=== PATIENT | female | born 1975 | race Caucasian/White ===

== ENCOUNTER 2016-06-07 08:28 | Emergency (ER) | payer BC, OTHER ==
[~2016-06-07] VITALS: Ht 152.4 cm; Wt 67.0 kg
[2016-06-07 08:30] VITALS: Ht 152.4 cm; Wt 67.0 kg
[2016-06-07] MEDS ORDERED: BENZ100C70 PO (08:44)
[2016-06-07] MEDS ORDERED: IBUP-1542 PO (08:44)
[2016-06-07] MEDS ORDERED: GUAI118L22 PO (08:44)
--- NOTE | 2016-06-07 08:58 | ERD ---
ER Documentation Chief Complaint Date/Time DATE: 06/07/16 TIME: 08:55 Chief Complaint COUGH X 3 DAYS HPI 40 y o female comes in with cough, sore throat, rhinorrhea for the past 3 days. No fever, hemoptysis. Denies chest pain or shortness of breath. ROS All systems reviewed and are negative except as per history of present illness. Medications Home Meds Active Scripts Ibuprofen* (Motrin*) 600 Mg Tab, 600 MG PO Q6, #30 TAB Prov:GINA FLOWER PA-C 06/07/16 Benzonatate* (Tessalon Perle*) 100 Mg Capsule, 100 MG PO Q8H Y for COUGH, #20 CAP Prov:GNIA FLOWER PA-C 06/07/16 Guaifenesin/Codeine Phosphate (CHERATUSSIN AC SYRUP) 118 Ml Liquid, 5 ML PO Q4H Y for COUGH, #118 ML Prov:GINA FLOWER PA-C 06/07/16 Allergies Allergies: Coded Allergies: No Known Allergy (Verified Allergy, Unknown, 12/30/08) PMhx/Soc Medical and Surgical Hx: pt denies Medical Hx, pt denies Surgical Hx Hx Alcohol Use: No Hx Substance Use: No Hx Tobacco Use: No Physical Exam Vitals Vital Signs Date Time Temp Pulse Resp B/P Pulse Ox O2 Delivery O2 Flow Rate FiO2 06/07/16 08:30 97.6 74 18 123/78 99 Physical Exam General: Well-developed, well-nourished. The patient appears in no acute distress. HEENT: Head is normocephalic, atraumatic. No scleral icterus. Pupils are equal , round, and reactive. Oral mucous membranes are moist. No pharyngeal erythema. Neck: Supple. Nontender. Lungs: Clear to auscultation. Normal air movement. Heart: Regular rate and rhythm. S1 and S2 are normal. No murmurs, gallops, or rubs. Abdomen: Soft, nontender, nondistended. Bowel sounds are normoactive. Extremities: No clubbing or cyanosis. Normal pulses. Moving extremities x 4. No weakness. Neurologic: Alert and oriented 3. No focal deficits. Skin: Normal turgor. No rash or lesions. Procedures/MDM The patient is a 40-year-old female who comes in with an acute upper respiratory infection, presumed viral. The patient has a differential diagnosis of a viral upper respiratory infection, bacterial upper respiratory infection, bronchitis, pneumonia, pharyngitis, laryngitis, epiglottitis, croup, pneumonia. Patient has a normal pulmonary examination, clear breath sounds, normal pulse oximetry, with no corrective measures needed at this time. Fluids, rest, antipyretics were encouraged. Departure Diagnosis: Primary Impression: Cough Condition: Good Patient Instructions: Uri, Viral, No Abx (Adult) Additional Instructions: Call your primary care doctor TOMORROW for an appointment during the next 1-2 days.See the doctor sooner or return here if your condition worsens before your appointment time. GINA FLOWER PA-C Jun 07, 2016 08:58
== END 2016-06-07 09:18 | disposition home or self-care (01) ==
LOC: FTE 08:28
DX: R05 Cough (principal)
CPT/HCPCS: 99283

== ENCOUNTER 2016-10-09 05:37 | Day surgery (SDC) | payer OTHER ==
[~2016-10-09] VITALS: Ht 165.1 cm; Wt 68.0 kg
[2016-10-09] VITALS (10 sets, daily range): BP systolic 84–106; BP diastolic 55–68; PULSE 41–66; RESP 15–18; Ht 165.1 cm; Wt 68.0 kg
[~2016-10-09 05:37] MED LIST: BENZ100C70 PO; GUAI118L22 PO; IBUP-1542 PO
[2016-10-09] MEDS ORDERED: STRONG IODINE 14 ML SOLUTION TOP ONE (06:43)
[2016-10-09] MEDS ORDERED: SEVOFLURANE 15 MIN ONE (07:00)
[2016-10-09] MEDS ORDERED: ONDANSETRON 4 MG INJ ONE (07:29)
[2016-10-09] MEDS ORDERED: MEPERIDINE 100 MG INJ ONE (07:29)
[2016-10-09] MEDS ORDERED: LIDOCAINE 2% (SDV) 5 ML INJ ONE (07:29)
[2016-10-09] MEDS ORDERED: PROPOFOL 20 ML ONE (07:29)
[2016-10-09] MEDS ORDERED: METOCLOPRAMIDE 10 MG INJ ONE (07:30)
[2016-10-09] MEDS ORDERED: METOCLOPRAMIDE 10 MG INJ IV PRN (08:30)
[2016-10-09] MEDS ORDERED: OXYCODONE/ACETAMINOPHEN (5/325) TAB PO PRN ×2 (08:30)
[2016-10-09] MEDS ORDERED: EPHEDrine SULFATE 50 MG/5 ML SYG IV PRN (08:30)
[2016-10-09] MEDS ORDERED: FENTAnyl 50 MCG/ML VIAL IV PRN ×3 (08:30)
[2016-10-09] MEDS ORDERED: HYDROmorphONE (0.2 MG/ML) 10ML SYG IV PRN ×3 (08:30)
[2016-10-09] MEDS ORDERED: DIPHENHYDRAMINE 50 MG INJ IV PRN (08:30)
[2016-10-09] MEDS ORDERED: LABETALOL HCL 20MG INJ IV PRN (08:30)
[2016-10-09] MEDS ORDERED: MEPERIDINE 25 MG INJ IV PRN (08:30)
[2016-10-09] MEDS ORDERED: MIDAZOLAM 1 MG/ML 2 ML INJ IV PRN (08:30)
[2016-10-09] MEDS ORDERED: ONDANSETRON 4 MG INJ IV PRN (08:30)
--- NOTE | 2016-10-09 08:40 | OPR ---
Date/Time of Note Date/Time of Note DATE: 10/09/16 TIME: 08:33 Operative Report Preoperative Diagnosis cin3 Postoperative Diagnosis pending path report Operation/Procedure Performed leep &d&c Surgeon: RAVEN BRIDGES MD Anesthesia Type: general Estimated Blood Loss: 0 - 10 ml's Transfusion Required: no Specimens ectocx bx endocx bx ecc emc Grafts/Implants: none Complications: no RAVEN BRIDGES MD Oct 09, 2016 08:40
[2016-10-09] MEDS ORDERED: ACETAMINOPHEN 325 MG TAB PO PRN ×2 (09:00→09:30)
--- NOTE | 2016-10-10 08:17 | OPR ---
DATE OF OPERATION: 10/09/2016 PREOPERATIVE DIAGNOSIS: Cervical intraepithelial neoplasia 3 per colposcopy directed biopsy. POSTOPERATIVE DIAGNOSIS: Pending pathology report. SURGEON: Dr. Brandon. HAMMER REPAIRER: Lyn arias. ANESTHESIA: General. OPERATION PERFORMED: Loop electrocautery excision procedure and D and C. OPERATIVE PROCEDURE: Under general anesthesia, the patient was prepped and draped in the usual fashion for vaginal surgery. Pelvic exam under anesthesia revealed the cervix to be firm. Uterus of normal size and adnexa were negative for masses. Then the heavyweight vaginal retractor was put in place and the anterior lip of the cervix was grasped with an Allis clamp. The cervix and the vagina was dabbed with Lugol's solution. The external os of the cervix did not take the Lugol's. Then the loop was passed from left to right on the anterior lip of the cervix and from left to right on the posterior lip of the cervix. A good amount of tissue was obtained. Another smaller loop was passed up through the endocervical canal. A good amount of tissue was obtained. Endocervical curettage was done and a small amount of tissue was obtained. Endometrial curettage was done and a small amount of tissue was obtained. The site of the biopsy was cauterized with a ball cautery. No bleeding was noted. After cauterization, a small piece of Surgicel was left at the site of the biopsy. The patient tolerated the procedure well. ESTIMATED BLOOD LOSS: Minimal. Vital signs were stable during and after the procedure. Dictated By: Debbie Brandon MD /china/paresh /Document#: [id number] CC: Debbie Brandon MD;*[facility]*
== END 2016-10-09 09:31 | disposition home or self-care (01) ==
LOC: SDS 05:37
PROVIDERS: ATTEND Obstetrics & Gynecology
DX: D06.9 Carcinoma in situ of cervix, unspecified (principal)
CPT/HCPCS: 57522; 84702; 86850; 86900; 86901; 88305; J2175; J2405; J2765; Z7512; Z7610

== ENCOUNTER 2016-10-18 08:22 | Emergency (ER) | END 2016-10-18 09:32 | disposition home or self-care (01) | DX: N39.0 Urinary tract infection, site not specified (principal); R10.2 Pelvic and perineal pain | CPT/HCPCS: 81001; Z7502 ==

== ENCOUNTER 2016-11-26 09:31 | Emergency (ER) | payer OTHER ==
[~2016-11-26] VITALS: Ht 162.6 cm; Wt 66.0 kg
[~2016-11-26 09:31] MED LIST changes: -BENZ100C70 PO; -GUAI118L22 PO; -IBUP-1542 PO; +NITR-58 PO; +PHEN-538 PO
[2016-11-26 09:37] VITALS: Ht 162.6 cm; Wt 66.0 kg
[2016-11-26 10:57] LABS: ADD UMIC YES; UR ASCORBIC ACID NEGATIVE (NEGATIVE); UR BACTERIA FEW /HPF (NONE SEEN); UR BILIRUBIN (Dip) NEGATIVE (NEGATIVE); UR BLOOD (Dip) 1+ mg/dL (NEGATIVE); UR BUDDING YEAST FEW /HPF (NONE SEEN); UR CLARITY CLOUDY (CLEAR); UR COLOR YELLOW (YELLOW); UR GLUCOSE (Dip) NEGATIVE (NEGATIVE); UR KETONES (Dip) NEGATIVE (NEGATIVE); UR LEUKOCYTE ESTERASE (Dip) 3+ Leu/ul (NEGATIVE); UR MUCUS FEW /HPF (NONE SEEN); UR NITRITE (Dip) NEGATIVE (NEGATIVE); UR RBC 9 /HPF (0-5); UR SPECIFIC GRAVITY (Dip) 1.019 (1.003-1.030); UR SQUAMOUS EPITHELIAL CELL MODERATE /HPF (FEW); UR TOTAL PROTEIN (Dip) NEGATIVE (NEGATIVE); UR UROBILINOGEN (Dip) NEGATIVE (NEGATIVE)
--- NOTE | 2016-11-26 11:24 | RADRPT ---
PROCEDURE: US Pelvis Transabdominal and Transvaginal. CLINICAL INDICATION: Pelvic pain. TECHNIQUE: Multiple sonographic images of the pelvis were obtained utilizing dumont scale, Doppler a nd color flow imaging with transabdominal and endovaginal technique. The images were reviewed on a PACS workstation. COMPARISON: None. FINDINGS: The uterus is visualized and measures 8.1 x 6.2 x 5.6 cm. The endometrial echo complex measures 16.5 mm in thickness. Mild heterogeneity of the endometrium is seen. Small amount of free fluid is seen in the cervical canal. A 2.5 cm subserosal fibroid is identified in the uterus. The right ovary measures 6.2 x 2.7 x 4.7 cm . The left ovary measures 3.2 x 2.1 x 2.4 cm. A 4.1 x 2.5 x 4.1 cm heterogeneously hypoechoic nodular lesion is identified on the right ovary. No vascular ity is seen in this lesion. The ovaries demonstrate normal vascularity. Small amount of free fluid is seen in the cul-de-sac and left adnexa IMPRESSION: 2.5 cm uterine fibroid. Mildly thickened, heterogeneous appearing endometrium. Etiology of this finding is uncertain. Contin ued follow-up with repeat exam in 12 weeks to assess for persistence of this finding can be consider ed. Small amount of free fluid in the cervical canal. This could be related to menses. 4.1 cm heterogeneously hypoechoic nodular lesion on the right ovary. This could reflect an early hem orrhagic cyst versus true soft tissue nodule. Continued follow-up with repeat exam in 12 weeks to as sess the stability of this lesion is recommended. Small amount of nonspecific free fluid in the cul-de-sac and left adnexa. This could be physiologic. If further characterization of the organs of the pelvis is needed MRI should be considered. RPTAT: AA .Tee Kang MD, Date Time Electronically viewed and signed by .Tee Kang MD, on 11/26/2016 11:24 .P/
[2016-11-26] MEDS ORDERED: CIPR500T4 PO (12:28)
[2016-11-26] MEDS ORDERED: IBUP-1542 PO (12:29)
--- NOTE | 2016-11-26 12:44 | ERD ---
ER Documentation Chief Complaint Date/Time DATE: 11/26/16 TIME: 12:41 Chief Complaint pt bib self with c/o pelvic pain awaiting hysterectomy HPI This 41-year-old female presents with some suprapubic pain for last 3 days. History is significant for dilatation and curettage last month,. Patient presents with laboratory report showing precancerous or cancerous pathology from the cervix or uterus. Patient is scheduled for hysterectomy although she does not have the specific date. Her REGIONAL MAINTENANCE MANAGER is Dr. Davis. Patient has been told she had infections after D&C and was treated with multiple antibiotics. Her last course of Vigamox was 2 weeks ago. She feels like the infection is returned. She denies fevers, vomiting, right or left lower abdominal pain. His vaginal discharge or bleeding. ROS All systems reviewed and are negative except as per history of present illness. Medications Home Meds Active Scripts Ibuprofen* (Motrin*) 600 Mg Tab, 600 MG PO Q6, #15 TAB Prov:PENNIE MONAHAN MD 11/26/16 Ciprofloxacin Hcl* (Ciprofloxacin Hcl*) 500 Mg Tablet, 500 MG PO BID for 7 Days , TAB Prov:PENNIE MONAHAN MD 11/26/16 Phenazopyridine Hcl* (Pyridium*) 200 Mg Tab, 200 MG PO TID, #20 TAB Prov:GUSTAVO ABREU PA-C 10/18/16 Nitrofurantoin Monohyd Macrocr* (Macrobid*) 100 Mg Capsr, 100 MG PO BID for 7 Days, CAP Prov:GUSTAVO ABREU PA-C 10/18/16 Allergies Allergies: Coded Allergies: No Known Allergy (Verified , 11/26/16) PMhx/Soc History of Surgery: Yes (C/S/ LT HIP SX/PELVIC FX) Anesthesia Reaction: No Hx Neurological Disorder: No Hx Respiratory Disorders: No Hx Cardiac Disorders: No Hx Psychiatric Problems: No Hx Miscellaneous Medical Probl: No Hx Alcohol Use: No Hx Substance Use: No Hx Tobacco Use: No Smoking Status: Never smoker Physical Exam Vitals Vital Signs Date Time Temp Pulse Resp B/P Pulse Ox O2 Delivery O2 Flow Rate FiO2 11/26/16 09:37 97.6 66 16 111/74 97 Physical Exam Const: [], [id number] per Head: Atraumatic Eyes: Normal Conjunctiva ENT: Normal External Ears, Nose and Mouth. Neck: Full range of motion..~ No meningismus. Resp: Clear to auscultation bilaterally Cardio: Regular rate and rhythm, no murmurs Abd: Soft, suprapubic tenderness. No tenderness at McBurney's point no Ford sign., non distended. Normal bowel sounds Skin: No petechiae or rashes Back: No midline or flank tenderness Ext: No cyanosis, or edema Neur: Awake and alert Psych: Normal Mood and Affect Results 24 hrs Laboratory Tests Test 11/26/16 10:35 Urine Color YELLOW Urine Clarity CLOUDY Urine pH 5.0 Urine Specific [place] 1.019 Urine Ketones NEGATIVEmg/dL Urine Nitrite NEGATIVEmg/dL Urine Bilirubin NEGATIVEmg/dL Urine Urobilinogen NEGATIVEmg/dL Urine Leukocyte Esterase 3+Stella/ul Urine Microscopic RBC 9/HPF Urine Microscopic WBC 25/HPF Urine Squamous Epithelial Cells MODERATE/HPF Urine Bacteria FEW/HPF Urine Mucus FEW/HPF Urine Yeast (Budding) FEW/HPF Urine Hemoglobin 1+mg/dL Urine Glucose NEGATIVEmg/dL Urine Total Protein NEGATIVEmg/dl Procedures/MDM Shows white blood cells hemoglobin and leukocyte Estrace. HCG negative. Patient has signs of urinary tract infection. Pelvic ultrasound shows thickened endometrial lining and a small amount of fluid in the cervical canal. There is also some subtle abnormalities no ovarian without evidence of torsion , tubo-ovarian abscess, additional acute findings. She will be treated with Cipro and REGIONAL MAINTENANCE MANAGER and primary care follow-up. Patient shows no signs of acute abdomen, sepsis but should return for fevers, vomiting, new worsening symptoms. Patient appears to have good outpatient follow-up as her surgery is pending according to her paperwork. The patient was stable with no new complaints during the ER course. Clinically, there is no current evidence to suggest meningitis, sepsis, acute abdomen, pneumonia, acute coronary syndrome, pulmonary embolism, or any other emergent condition appearing to require further evaluation or hospitalization. The patient should certainly return for any new or worsening symptoms per the aftercare instructions. They should otherwise follow-up with her primary care doctor for reevaluation this week. Departure Diagnosis: Primary Impression: UTI (urinary tract infection) Urinary tract infection type: acute cystitis Hematuria presence: without hematuria Qualified Code: N30.00 - Acute cystitis without hematuria Additional Impression: Acute pain in female pelvis Condition: Stable Patient Instructions: Understanding Urinary Tract Infections (UTIs), Pelvic Pain, Unknown Cause Additional Instructions: Urine shows infection and we will retreat for this. Follow up with REGIONAL MAINTENANCE MANAGER for surgery as scheduled. Recheck for fevers, vomiting, new symptoms. PENNIE MONAHAN MD Nov 26, 2016 12:44
== END 2016-11-26 12:58 | disposition home or self-care (01) ==
LOC: FTE 09:31
DX: N30.00 Acute cystitis without hematuria (principal)
CPT/HCPCS: 76830; 76856; 81001; 87086; Z7502

== ENCOUNTER 2016-12-10 09:33 | Emergency (ER) | payer OTHER ==
[~2016-12-10] VITALS: Ht 165.1 cm; Wt 69.0 kg
[~2016-12-10 09:33] MED LIST changes: +CIPR500T4 PO; +IBUP-1542 PO
[2016-12-10 09:39] VITALS: Ht 165.1 cm; Wt 69.0 kg
--- NOTE | 2016-12-10 10:29 | ERD ---
ER Documentation Chief Complaint Date/Time DATE: 12/10/16 TIME: 10:24 Chief Complaint CAME IN VIA INTAKE DUE TO CONSISTENT URINARY INFECTION HPI 41 year old female comes in with 2 days of pain with urination, urgency frequency for the past 2 days. She has had recurrent urinary tract infection symptoms. He has recurrent sharp suprapubic pain, and had a CT of the abdomen pelvis and labs and urine testing at [facility] last week, urine was negative for infection, CT was also negative. She was told that she has precancerous cells from a LEEP and D&C that was done in October 2016 and she is going to get a total hysterectomy next Saturday. Since October she has been on Macrobid followed by Keflex followed by Bactrim DS and Cipro. She denies any hematuria, fevers, chills, flank pain, nausea, vomiting. ROS All systems reviewed and are negative except as per history of present illness. Medications Home Meds Active Scripts Nitrofurantoin Monohyd Macrocr* (Macrobid*) 100 Mg Capsr, 100 MG PO BID for 14 Days, CAP Prov:GINA FLOWER PA-C 12/10/16 Ibuprofen* (Motrin*) 600 Mg Tab, 600 MG PO Q6, #15 TAB Prov:PENNIE MONAHAN MD 11/26/16 Ciprofloxacin Hcl* (Ciprofloxacin Hcl*) 500 Mg Tablet, 500 MG PO BID for 7 Days , TAB Prov:PENNIE MONAHAN MD 11/26/16 Phenazopyridine Hcl* (Pyridium*) 200 Mg Tab, 200 MG PO TID, #20 TAB Prov:GUSTAVO ABREU PA-C 10/18/16 Nitrofurantoin Monohyd Macrocr* (Macrobid*) 100 Mg Capsr, 100 MG PO BID for 7 Days, CAP Prov:GUSTAVO ABREU PA-C 10/18/16 Allergies Allergies: Coded Allergies: No Known Allergy (Verified , 11/26/16) PMhx/Soc History of Surgery: Yes (C/S/ LT HIP SX/PELVIC FX) Anesthesia Reaction: No Hx Neurological Disorder: No Hx Respiratory Disorders: No Hx Cardiac Disorders: No Hx Psychiatric Problems: No Hx Miscellaneous Medical Probl: No Hx Alcohol Use: No Hx Substance Use: No Hx Tobacco Use: No Physical Exam Vitals Vital Signs Date Time Temp Pulse Resp B/P Pulse Ox O2 Delivery O2 Flow Rate FiO2 12/10/16 09:39 98.1 84 18 138/85 99 Physical Exam General: Well-developed, well-nourished. The patient appears in no acute distress. HEENT: Head is normocephalic, atraumatic. No scleral icterus. Neck: Supple. Nontender. Lungs: Clear to auscultation. Normal air movement. Heart: Regular rate and rhythm. S1 and S2 are normal. No murmurs, gallops, or rubs. Abdomen: Soft, nontender, nondistended. Bowel sounds are normoactive. Extremities: No clubbing or cyanosis. Normal pulses. Moving extremities x 4. No weakness. Neurologic: Alert and oriented 3. No focal deficits. Skin: Normal turgor. No rash or lesions. Results 24 hrs Laboratory Tests Test 12/10/16 10:30 Urine Color STRAW Urine Clarity SLIGHTLY CLOUDY Urine pH 6.0 Urine Specific [place] 1.005 Urine Ketones NEGATIVEmg/dL Urine Nitrite NEGATIVEmg/dL Urine Bilirubin NEGATIVEmg/dL Urine Urobilinogen NEGATIVEmg/dL Urine Leukocyte Esterase 2+Stella/ul Urine Microscopic RBC 2/HPF Urine Microscopic WBC 6/HPF Urine Squamous Epithelial Cells FEW/HPF Urine Amorphous Crystals FEW/HPF Urine Bacteria FEW/HPF Urine Hemoglobin 2+mg/dL Urine Glucose NEGATIVEmg/dL Urine Total Protein NEGATIVEmg/dl Urine Test NEGATIVE Procedures/MDM 41-year-old female presents with pelvic pain, painful urination, with positive UA for urinary tract infection. Patient was concerned because she has had multiple urinary tract infections over the last 2 months and she has a procedure for total hysterectomy on Saturday of next week. Her urine will be Sent for culture given her recurrent infections or recent antibiotic use. She will be started on Macrobid to be taken up until the point of her surgery. She has not had any fevers or chills or signs of pyelonephritis. She is already had a CT of the abdomen and pelvis as well as blood work recently in a different emergency department and she presents with her results which were reviewed, and unremarkable. Departure Diagnosis: Primary Impression: UTI (urinary tract infection) Condition: Good GINA FLOWRE PA-C Dec 10, 2016 10:29
[2016-12-10 11:04] LABS: ADD UMIC YES; UR AMORPHOUS CRYSTAL FEW /HPF (NONE SEEN); UR ASCORBIC ACID NEGATIVE (NEGATIVE); UR BACTERIA FEW /HPF (NONE SEEN); UR BILIRUBIN (Dip) NEGATIVE (NEGATIVE); UR BLOOD (Dip) 2+ mg/dL (NEGATIVE); UR CLARITY SLIGHTLY CLOUDY (CLEAR); UR COLOR STRAW (YELLOW); UR GLUCOSE (Dip) NEGATIVE (NEGATIVE); UR KETONES (Dip) NEGATIVE (NEGATIVE); UR LEUKOCYTE ESTERASE (Dip) 2+ Leu/ul (NEGATIVE); UR NITRITE (Dip) NEGATIVE (NEGATIVE); UR RBC 2 /HPF (0-5); UR SPECIFIC GRAVITY (Dip) 1.005 (1.003-1.030); UR SQUAMOUS EPITHELIAL CELL FEW /HPF (FEW); UR TOTAL PROTEIN (Dip) NEGATIVE (NEGATIVE); UR UROBILINOGEN (Dip) NEGATIVE (NEGATIVE)
[2016-12-10] MEDS ORDERED: NITR-58 PO (11:17)
== END 2016-12-10 11:34 | disposition home or self-care (01) ==
LOC: FTE 09:33
DX: N39.0 Urinary tract infection, site not specified (principal)
CPT/HCPCS: 81001; 84703; 87086; Z7502; 99283

== ENCOUNTER 2016-12-18 05:51 | Inpatient (IN) | payer OTHER ==
[2016-12-18] VITALS (28 sets, daily range): BP systolic 92–114; BP diastolic 50–72; PULSE 58–89; RESP 7–21; Ht 165.1 cm; Wt 65.0 kg
[~2016-12-18] VITALS: Ht 165.1 cm; Wt 65.0 kg
--- NOTE | 2016-12-18 07:11 | PREOPHP ---
DATE OF ADMISSION: 12/18/2016 HISTORY OF PRESENT ILLNESS: This is a 41-year-old lady, 1, para 1. Her last normal menstrual period was a few days prior to admission. She was admitted for exploratory laparotomy and total abdominal hysterectomy. The patient had an abnormal Pap, atypical squamous cells, cannot rule out high grade. She had a colposcopy biopsy done and showed SRAVAN 1 ectocervix and CI 3 endocervix. She had a LEEP and D and C done and the LEEP and D and C showed SRAVAN 3. The patient did not like to have anymore children and she did not like to have a follow-up Pap smear. She wanted to go for the above procedure. he procedures were explained to her and she understood everything totally. The risks, benefits, and alternatives were discussed with her as well. PAST MEDICAL HISTORY: No history of diabetes, TB, asthma. She had hip surgery 18 years ago. ALLERGIES: THE PATIENT DOES NOT SMOKE. SHE DOES NOT DRINK. SHE DOES NOT TAKE ANY DRUGS. COMPOSITION FLOOR SETTER HISTORY: She had menarche at the age of 12, every 28 days interval, 3-4 days duration and moderate in amount. She is 1, para 1. She had one section in 2008. FAMILY HISTORY: Noncontributory, except her father has diabetes. REVIEW OF SYSTEMS: CARDIOVASCULAR: No chest pain. LUNGS: No cough. GASTROINTESTINAL: No diarrhea, no vomiting. GENITOURINARY: No dysuria. PHYSICAL EXAMINATION: GENERAL APPEARANCE: Reveals a conscious, coherent lady, in no acute distress. VITAL SIGNS: Her blood pressure 120/80, pulse rate 80 per minute, respirations 16 per minute. BREASTS: Within normal limits. HEART: Within normal limits. LUNGS: Within normal limits. ABDOMEN: Soft. No organomegaly. Weight 148 pounds. PELVIC: Pelvic exam revealed the cervix to be firm. Uterus of normal size and adnexa were negative for masses. Rectal exam confirmed the pelvic findings. EXTREMITIES: No pedal edema. ADMITTING DIAGNOSIS: Cervical intraepithelial neoplasia 3. Post LEEP and D and C. the patient was planned to have the total abdominal hysterectomy. The procedures were explained to her and she understood everything totally. The risks, benefits, and alternatives were discussed with her as well. Dictated By: Debbie Brandon MD /china/vamsi /Document#: [id number] ; copy to [facility]
[2016-12-18] MEDS ORDERED: MIDAZOLAM 1 MG/ML 2 ML INJ ONE (07:43)
[2016-12-18] MEDS ORDERED: FENTAnyl 50 MCG/ML VIAL ONE (07:44)
[2016-12-18] MEDS ORDERED: PROPOFOL 20 ML ONE (07:45)
[2016-12-18] MEDS ORDERED: LIDOCAINE 2% (SDV) 5 ML INJ ONE (07:45)
[2016-12-18] MEDS ORDERED: CEFAZOLIN 1 GM INJ ONE (07:51)
[2016-12-18] MEDS ORDERED: SUCCINYLCHOLINE CHLORIDE 100 MG/5 ML SYG IV ONE (08:06)
[2016-12-18] MEDS ORDERED: ONDANSETRON 4 MG INJ ONE (08:06)
[2016-12-18] MEDS ORDERED: HYDROmorphONE 2 MG/ML SYG ONE (08:06)
[2016-12-18] MEDS ORDERED: DEXAMETHASONE 4 MG/ML 1 ML INJ ONE (08:06)
[2016-12-18] MEDS ORDERED: FAMOTIDINE 20 MG INJ ONE (08:07)
[2016-12-18] MEDS ORDERED: ROCURONIUM 50 MG INJ ONE (08:10)
[2016-12-18] MEDS ORDERED: EPHEDrine SULFATE 50 MG/5 ML SYG ONE (08:10)
[2016-12-18] MEDS ORDERED: ONDANSETRON 4 MG INJ IV PRN (09:00)
[2016-12-18] MEDS ORDERED: DIPHENHYDRAMINE 50 MG INJ IV PRN ×2 (09:00→10:00)
[2016-12-18] MEDS ORDERED: MEPERIDINE 25 MG INJ IV PRN (09:00)
[2016-12-18] MEDS ORDERED: PROCHLORPERAZINE 10 MG INJ IV PRN (09:00)
[2016-12-18] MEDS ORDERED: HYDROmorphONE (0.2 MG/ML) 10ML SYG IV PRN ×3 (09:00)
[2016-12-18] MEDS ORDERED: OXYCODONE/ACETAMINOPHEN (5/325) TAB PO PRN (09:00)
[2016-12-18] MEDS ORDERED: FENTAnyl 50 MCG/ML VIAL IV PRN ×3 (09:00)
[2016-12-18] MEDS ORDERED: NEOSTIGMINE 3 MG/3 ML SYRINGE ONE (09:24)
[2016-12-18] MEDS ORDERED: GLYCOPYRROLATE 0.4 MG INJ ONE (09:24)
[2016-12-18] MEDS ORDERED: KETOROLAC 30 MG INJ ONE (09:34)
--- NOTE | 2016-12-18 09:43 | SIPON ---
Date/Time of Note Date/Time of Note DATE: 12/18/16 TIME: 09:39 Operative Report Preoperative Diagnosis SRAVAN III PATIENT DESIRES HYSTERECTOMY FIBROID UTERUS Postoperative Diagnosis SRAVAN III PATIENT DESIRES HYSTERECTOMY PERINEAL RELAXATION SEVERE PELVIC ADHESION RIGHT OVARIAN CYST FIBROID UTERUS Operation/Procedure Performed EXPLORATORY LAPAROTOMY TOTAL ABDOMINAL HYSTERECTOMY LYSIS OF ADHESION RIGHT OVARIAN CYSTECTOMY VAGINAL VAULT SUSPENSION BILATERAL SALPINGECTOMY Surgeon see signature line temporary office assistant DR OAKES Anesthesia: general Estimated blood loss: 250 - 300 ml's Transfusion Required none Specimen CERVIX BODY OF UTERUS BOTH TUBES RIGHT OVARIAN CYST PELVIC ADHESION Grafts/Implants none Complications none RAVEN BRIDGES MD Dec 18, 2016 09:43
[2016-12-18] MEDS ORDERED: NALOXONE (0.4 MG/ML) INJ IV PRN (10:00)
[2016-12-18] MEDS ORDERED: KETOROLAC 30 MG INJ IV PRN (10:00)
[2016-12-18] MEDS ORDERED: HYDROmorphONE 0.5 MG/0.5 ML SYG IV PRN ×2 (10:00)
[2016-12-18] MEDS: HYDROmorphONE 0.2 MG/ML PCA IV SCH (10:17)
[2016-12-18 10:26] LABS: ADD UMIC YES; UR ASCORBIC ACID NEGATIVE (NEGATIVE); UR BILIRUBIN (Dip) NEGATIVE (NEGATIVE); UR BLOOD (Dip) 3+ mg/dL (NEGATIVE); UR CLARITY CLEAR (CLEAR); UR COLOR YELLOW (YELLOW); UR GLUCOSE (Dip) NEGATIVE (NEGATIVE); UR KETONES (Dip) 1+ mg/dL (NEGATIVE); UR LEUKOCYTE ESTERASE (Dip) NEGATIVE Leu/ul (NEGATIVE); UR NITRITE (Dip) NEGATIVE (NEGATIVE); UR RBC 116 /HPF (0-5); UR SPECIFIC GRAVITY (Dip) 1.017 (1.003-1.030); UR TOTAL PROTEIN (Dip) NEGATIVE (NEGATIVE); UR UROBILINOGEN (Dip) NEGATIVE (NEGATIVE)
[2016-12-18] MEDS: LACTATED RINGER'S 1,000 ML IV SCH ×2 (15:00→18:25)
[2016-12-18] MEDS: ONDANSETRON 4 MG INJ IV PRN (21:43)
[2016-12-19 02:34] VITALS: BP 100/52; RESP 18
[2016-12-19] MEDS: LACTATED RINGER'S 1,000 ML IV SCH ×3 (02:40→18:42)
[2016-12-19] MEDS: HYDROmorphONE 0.2 MG/ML PCA IV SCH (02:47)
[2016-12-19 05:16] LABS: BASOPHILS % 0.1 % (0.0-2.0); HEMATOCRIT 27.1 % (37.0-47.0); HEMOGLOBIN 8.8 g/dl (12.0-16.0); LYMPHOCYTES # 1.2 10^3/ul (0.8-2.9); LYMPHOCYTES % 12.8 % (15.0-51.0); MEAN CORPUSCULAR HEMOGLOBIN 31.2 pg (29.0-33.0); MEAN CORPUSCULAR HGB CONC 32.5 g/dl (32.0-37.0); MEAN CORPUSCULAR VOLUME 96.1 fl (82.0-101.0); MEAN PLATELET VOLUME 10.6 fl (7.4-10.4); MONOCYTE # 0.8 10^3/ul (0.3-0.9); MONOCYTES % 8.4 % (0.0-11.0); NEUTROPHIL # 7.3 10^3/ul (1.6-7.5); NEUTROPHILS % 78.4 % (39.0-77.0); PLATELET COUNT 180 10^3/UL (140-415); RED BLOOD COUNT 2.82 10^6/ul (4.20-5.40); RED CELL DISTRIBUTION WIDTH 12.4 % (11.5-14.5); WHITE BLOOD COUNT 9.3 10^3/ul (4.8-10.8)
[2016-12-19 06:04] LABS: ALBUMIN 3.2 g/dl (3.3-4.9); ALBUMIN/GLOBULIN RATIO 1.18; BILIRUBIN,INDIRECT 0.4 mg/dl (0-1.1); BILIRUBIN,TOTAL 0.4 mg/dl (0.2-1.3); CALCIUM 7.9 mg/dl (8.4-10.2); CREATININE 0.59 mg/dl (0.44-1.00); POTASSIUM 4.6 mmol/L (3.5-5.1); TOTAL PROTEIN 5.9 g/dl (6.1-8.1)
[2016-12-19] MEDS: MAGNESIUM HYDROXIDE 30ML CUP PO SCH ×2 (06:52→17:21)
[2016-12-19] MEDS: BISACODYL 10 MG SUPP PR SCH ×2 (06:52→17:21)
[2016-12-19 07:56] VITALS: BP 91/58; RESP 18
[2016-12-19] MEDS ORDERED: OXYCODONE/ACETAMINOPHEN (5/325) TAB PO PRN ×3 (10:00)
--- NOTE | 2016-12-19 12:50 | OPR ---
DATE OF OPERATION: 12/18/2016 PREOPERATIVE DIAGNOSIS: 1. Fibroid uterus. 2. Perineal relaxation and fibroid uterus. 3. Perineal relaxation and chronic pelvic pain. 4. Cervical intraepithelial neoplasia 3. POSTOPERATIVE DIAGNOSIS: 1. Fibroid uterus. 2. Perineal relaxation and fibroid uterus. 3. Perineal relaxation and chronic pelvic pain. 4. Severe pelvic and abdominal adhesions. 5. Cervical intraepithelial neoplasia 3, pending pathology report. 6. Right ovarian cyst. SURGEON: Dr. Brandon. STEEL RULE DIE MAKER: Dr. Keith. ANESTHESIA: General. OPERATION PERFORMED: 1. Exploratory laparotomy. 2. Total abdominal hysterectomy. 3. Lysis of severe pelvic and abdominal adhesions. 4. Right ovarian cystectomy. 5. Bilateral salpingectomy. 6. Vaginal vault suspension. 7. Omental biopsy. ANESTHESIA: General. OPERATIVE TECHNIQUE: Under general anesthesia, the patient was prepped and draped in the usual fashion for abdominal surgery. After checking for the effect of the anesthesia, a Pfannenstiel incision, 12 cm skin incision was performed. The incision was carried from the skin up to the fascia. Upon opening the skin up to the fascia, the small blood vessels were noted to be oozing, and these were all cauterized. Fascia was opened transversely followed by splitting the muscles vertically and the peritoneum vertically. Upon opening the abdominal cavity, the upper abdominal organs were palpated. They were within normal limits. There were omental adhesions noted on the anterior parietal peritoneum. All these adhesions had to be lysed by sharp and blunt dissection. Then the self-retaining retractor was put in place. The bladder blade was put in place. The bowel was packed away from the operative field with the aid of six wet lap sponges and the upper blade was put in place. The uterus was noted to be deeply attached to the cul-de-sac. All these adhesions were lysed by sharp and blunt dissection. The right tube and the right ovary were attached to the right pelvic wall as well as the left tube and the left ovary. All these adhesions were lysed by sharp and blunt dissection. Then two towel clips were placed at the paratubal and paraovarian ligament for traction. The left round ligament was grasped with two Kochers and cut. Stick tie with 0 Vicryl was used and tied. The left utero-ovarian and left uterotubal ligament were grasped with two Sarah clamps and for back flow with straight Hue and cut. At first a free tie with 0 Vicryl was used, followed by Sarah suture. Bleeders were checked and there was no bleeding noted. Then the left tube was noted to be oozing so the Sarah clamp was placed at the mesosalpinx and the left tube was excised. Free tie with 0 Vicryl was used followed by Sarah suture. Bleeders were checked and there was no bleeding noted. Then the right round ligament was grasped with two Hue clamps and cut. A stick tie with 0 Vicryl was used tagged. Then the right utero-ovarian and the right uterotubal ligament were grasped with two Sarah clamps and for back flow with straight Hue and cut. First a free tie with 0 Vicryl was used followed by Sarah suture. Bleeders were checked and there was no bleeding noted. Then the same thing was done on the right side. The right mesosalpinx was grasped with two Sarah clamps, and the right tube was excised as it was noted to be oozing from the adhesions. A free tie with 0 Vicryl was used followed by Sarah suture. There was a cyst on the right ovary that was oozing. The cyst on the right ovary was about 4 x 4 cm. This cyst was removed and the remaining ovary was sutured in two layers using 2-0 chromic. The bleeders were checked and there was no bleeding noted. Then the broad ligament on both sides were skeletonized for the development of the bladder flap. Then the left uterine vessels were brought to view. The left uterine vessels were grasped with two Sarah clamps and for back flow with straight Hue and cut. A stick tie with 0 Vicryl was used on each clamp. The same thing was done on the right side. Bleeders were checked and there was no bleeding noted. Once again, the bladder was from the cervix by sharp and blunt dissection. Then about four Kochers were placed at the paracervical tissue on the left and right side. On each clamp, the tissue was cut and a stick tie with 0 Vicryl was used. The pelvis was noted to be deep, so that the body of the uterus was excised. The remaining cervix was grasped with two single-tooth tenaculums. Once again, the bladder was from the cervix by sharp and blunt dissection. About five more Kochers at the paracervical tissue on the left and right side and on each Hue, the tissue was cut and a stick tie with 0 Vicryl was used. Bleeders were checked and there was no bleeding noted. Then left uterosacral ligament was grasped with Hue and cut. A stick tie of 0 Vicryl was used and tied. The same thing was done on the right side. Then the cervicovaginal angle was brought to view. The cervicovaginal angle was grasped with two Sarah clamps and the cervix was excised. A little bit of the vagina was removed with the cervix. About 0.5 cm was removed. Then the Sarah suture was placed on the Sarah clamp. Another continuous sutures with 0 Vicryl was used to reinforce the first suture. The right angle of the vagina was sutured with right paracervical tissue, and after checking for any bleeders, in which there were none, was in turn tied with the right round ligament for vaginal vault suspension. The same thing was done on the left side. Then there was some oozing noted at the cul-de- sac. All this oozing were cauterized. All the stumps were checked for any bleeders, and there were no bleeding noted. Both ovaries, as mentioned, were identified. There was a piece of omentum that was sent to pathology. Irrigation was done with about 200 mL of normal saline. Bleeders were checked and there was no bleeding noted. Then a piece of Surgicel was left in the raw area. After correct sponge count, needle count, and instrument count as confirmed by the sewer and drain technician and fiberglass bonding machine tender, the abdomen was closed in the usual fashion using 0 Vicryl for the peritoneum, 0 Vicryl for the muscles. For the fascia, 0 Vicryl continuous stitch was used followed by a few figure-of- eight sutures for the subcutaneous tissue. It was closed with 3- 0 Vicryl and the skin was closed with 3-0 Vicryl. Subcuticular suture was used. The patient tolerated the procedure well. ESTIMATED BLOOD LOSS: About 300 cc. Vital signs was stable during and after the procedure. Dictated By: Debbie Brandon MD /china/vamsi /Document#: [id number] ; copy for [place] office
[2016-12-19 14:27] VITALS: BP 97/60; RESP 18
[2016-12-19] MEDS ORDERED: ACETAMINOPHEN 325 MG TAB PO PRN (15:40)
[2016-12-19] MEDS: ONDANSETRON 4 MG INJ IV PRN (16:10)
[2016-12-19] MEDS ORDERED: BISACODYL 10 MG SUPP PR ONE (22:30)
[2016-12-19] MEDS ORDERED: MAGNESIUM HYDROXIDE 30ML CUP PO ONE (22:30)
[2016-12-20 02:15] VITALS: BP 99/55; RESP 20
[2016-12-20] MEDS: LACTATED RINGER'S 1,000 ML IV SCH ×2 (02:46→11:38)
[2016-12-20 05:21] LABS: BASOPHILS % 0.1 % (0.0-2.0); EOSINOPHILS % 0.1 % (0.0-7.0); HEMATOCRIT 24.7 % (37.0-47.0); HEMOGLOBIN 7.9 g/dl (12.0-16.0); LYMPHOCYTES # 2.3 10^3/ul (0.8-2.9); LYMPHOCYTES % 31.7 % (15.0-51.0); MEAN CORPUSCULAR HEMOGLOBIN 30.5 pg (29.0-33.0); MEAN CORPUSCULAR VOLUME 95.4 fl (82.0-101.0); MONOCYTE # 0.6 10^3/ul (0.3-0.9); MONOCYTES % 8.5 % (0.0-11.0); NEUTROPHIL # 4.2 10^3/ul (1.6-7.5); NEUTROPHILS % 59.3 % (39.0-77.0); PLATELET COUNT 146 10^3/UL (140-415); RED BLOOD COUNT 2.59 10^6/ul (4.20-5.40); RED CELL DISTRIBUTION WIDTH 12.8 % (11.5-14.5); WHITE BLOOD COUNT 7.1 10^3/ul (4.8-10.8)
[2016-12-20] MEDS: ONDANSETRON 4 MG INJ IV PRN ×2 (05:32→09:41)
[2016-12-20] MEDS: BISACODYL 10 MG SUPP PR SCH ×2 (05:36→17:00)
[2016-12-20] MEDS: MAGNESIUM HYDROXIDE 30ML CUP PO SCH ×2 (05:36→17:00)
[2016-12-20 05:39] LABS: CALCIUM 8.1 mg/dl (8.4-10.2); CREATININE 0.6 mg/dl (0.44-1.00); POTASSIUM 3.9 mmol/L (3.5-5.1)
[2016-12-20] MEDS: HYDROmorphONE 0.2 MG/ML PCA IV SCH (05:41)
[2016-12-20 07:57] VITALS: BP 103/62; RESP 19
[2016-12-20 13:05] VITALS: BP 124/66; RESP 18
[2016-12-20 14:39] LABS: BASOPHILS % 0.2 % (0.0-2.0); HEMATOCRIT 26.7 % (37.0-47.0); HEMOGLOBIN 8.8 g/dl (12.0-16.0); LYMPHOCYTES # 1.2 10^3/ul (0.8-2.9); LYMPHOCYTES % 18.6 % (15.0-51.0); MEAN CORPUSCULAR HEMOGLOBIN 31.7 pg (29.0-33.0); MEAN PLATELET VOLUME 10.9 fl (7.4-10.4); MONOCYTE # 0.4 10^3/ul (0.3-0.9); MONOCYTES % 6.9 % (0.0-11.0); NEUTROPHIL # 4.6 10^3/ul (1.6-7.5); PLATELET COUNT 150 10^3/UL (140-415); RED BLOOD COUNT 2.78 10^6/ul (4.20-5.40); RED CELL DISTRIBUTION WIDTH 12.6 % (11.5-14.5); WHITE BLOOD COUNT 6.2 10^3/ul (4.8-10.8)
== END 2016-12-20 18:30 | disposition home or self-care (01) | DRG 741 ==
LOC: REC 05:51 → MS1 11:10
PROVIDERS: ADMIT Obstetrics & Gynecology; ATTEND Obstetrics & Gynecology
PROC: 0UTC0ZZ Resection of Cervix, Open Approach (ICD-10-PCS; 2016-12-18)
PROC: 0UT70ZZ Resection of Bilateral Fallopian Tubes, Open Approach (ICD-10-PCS; 2016-12-18)
PROC: 0UNF0ZZ Release Cul-de-sac, Open Approach (ICD-10-PCS; 2016-12-18)
PROC: 0UN70ZZ Release Bilateral Fallopian Tubes, Open Approach (ICD-10-PCS; 2016-12-18)
PROC: 0UN20ZZ Release Bilateral Ovaries, Open Approach (ICD-10-PCS; 2016-12-18)
PROC: 0DNU0ZZ Release Omentum, Open Approach (ICD-10-PCS; 2016-12-18)
PROC: 0DNW0ZZ Release Peritoneum, Open Approach (ICD-10-PCS; 2016-12-18)
PROC: 0UB00ZZ Excision of Right Ovary, Open Approach (ICD-10-PCS; 2016-12-18)
PROC: 0USG0ZZ Reposition Vagina, Open Approach (ICD-10-PCS; 2016-12-18)
PROC: 0UT90ZZ Resection of Uterus, Open Approach (ICD-10-PCS; principal; 2016-12-18 07:30)
DX: D06.0 Carcinoma in situ of endocervix (principal); D25.1 Intramural leiomyoma of uterus; D06.1 Carcinoma in situ of exocervix; N83.201 Unspecified ovarian cyst, right side; N81.89 Other female genital prolapse; R10.2 Pelvic and perineal pain; N80.0 Endometriosis of uterus; N72 Inflammatory disease of cervix uteri; N80.2 Endometriosis of fallopian tube; K66.0 Peritoneal adhesions (postprocedural) (postinfection); N73.6 Female pelvic peritoneal adhesions (postinfective)
CPT/HCPCS: 80048; 80053; 81001; 84702; 85025; 86850; 86900; 86901; 86920; 87086; 88305; J0690; J1100; J1170; J1200; J1885; J2250; J2405; J2710; J3010; J7120

== ENCOUNTER 2017-01-07 08:14 | Emergency (ER) | payer OTHER ==
[~2017-01-07] VITALS: Ht 160 cm; Wt 67.8 kg
[~2017-01-07 08:14] MED LIST changes: +CEPH500C PO; -CIPR500T4 PO; +FLUC150T17 PO; -IBUP-1542 PO; -NITR-58 PO; -PHEN-538 PO
[2017-01-07 08:16] VITALS: Ht 160 cm; Wt 67.8 kg
[2017-01-07] MEDS ORDERED: SOD CHLORIDE 0.9% 1,000 ML IV STA (08:38)
[2017-01-07] MEDS ORDERED: ONDANSETRON 4 MG INJ IV STA ×2 (08:38→11:06)
[2017-01-07] MEDS ORDERED: morphine 4 MG/ML VIAL IV STA (08:38)
[2017-01-07] MEDS ORDERED: IOHEXOL 300MG/ML 150 ML BTL ONE (09:42)
[2017-01-07] MEDS ORDERED: SOD CHLORIDE 0.9% 100 ML ONE (09:42)
--- NOTE | 2017-01-07 09:53 | RADRPT ---
PROCEDURE: US Pelvis CLINICAL INDICATION: pelvic pain with vaginal discharge, hysterectomy 3 weeks ago TECHNIQUE: Multiple sonographic images of the pelvis were obtained utilizing a transabdominal and endovaginal technique. The images were reviewed on a PACS workstation. COMPARISON: Pelvic ultrasound from 11/26/2016 FINDINGS: The uterus is absent. The right ovary measures 3.3 x 2.0 x 2.6 cm. The left ovary measures 7.5 x 5.4 x 6.5 cm. There is no rmal vascular flow in both ovaries. There is a persistent complex cystic lesion in the right adnexa measuring 4.6 x 2.5 cm which has het erogeneous internal echoes, posterior acoustic enhancement, and mild peripheral vascular flow. The p rior ultrasound study from 11/26/2016 there was a similar complex cystic lesion in the right adnexa of the approximately same size. In the left adnexa, there is a new complex cystic lesion measuring 5.1 x 5.0 x 5.7 cm with lacy inte rnal septations. It is not associated with significant internal or peripheral vascular flow. There is mild pelvic free fluid. IMPRESSION: Since the prior ultrasound study from 11/26/2016, there has been interval hysterectomy. New complex cystic lesion in the left adnexa measuring up to 5.7 cm may be a hemorrhagic/corpus lute al cyst. There is also a 4.6 cm complex cystic lesion in the right adnexa which is essentially uncha nged compared to the prior ultrasound study from 11/26/2016. There is also mild pelvic free fluid wh ich may be postsurgical from hysterectomy or possibly due to rupture of a hemorrhagic/corpus luteal cyst. Given the stability of the right adnexal lesion and a new prominent left adnexal lesion, an MR I of the pelvis without and with intravenous contrast is recommended for further evaluation. RPTAT: EE Physician Jinny Date Time Electronically viewed and signed by Ryan Nugent Physician on 01/07/2017 09:52 /
--- NOTE | 2017-01-07 10:22 | RADRPT ---
PROCEDURE: CT ABDOMEN AND PELVIS WITH IV CONTRAST. CLINICAL INDICATION: Abdominal pain TECHNIQUE: CT scan of the abdomen and pelvis without contrast was performed on a multidetector hig h-resolution CT scanner following the use of IV contrast. 100 cc Omnipaque-300 was administered. Cor onal and sagittal reformatted images were obtained from the axial source images. Images were reviewe d on a high-resolution PACS workstation. The total exam CTDI equals 9 mGy and the total exam DLP equ als 512.0 mGy-cm. One or more of the following dose reduction techniques were used: Automated exposure control. Adjustment of the mA and/or kV according to patient size. Use of iterative reconstruction technique. COMPARISON: Ultrasound dated January 07, 2017 FINDINGS: CT abdomen: The lung bases are clear. The heart size is within limits. There is no significant pericardial effus ion. Hepatic morphology is within limits. No gross masses or lesions. Gallbladder is unremarkable. No aleida dence of intrahepatic or extrahepatic biliary dilatation. The spleen and pancreas are within normal limits. Both adrenal glands are within normal limits. Both kidneys are in normal anatomic position. No evidence of obstruction or hydronephrosis. No gross renal/ureteric calculi. The visualized GI tract demonstrate normal caliber loops of small and large bowel. No evidence of kahlil wel obstruction. The appendix is within normal limits. The aorta is unremarkable. No significant retroperitoneal lymphadenopathy. CT pelvis: There is a 5.0 x 2.9 x 4.9 cm focal fluid collection with air in the region of the uterus. and There is a large left cystic adnexa, measuring 5.0 x 5.9 cm. Free fluid is noted within the pelvis. The r ectosigmoid colon appears to be within normal limits. The visualized osseous structures, appears to be within normal limits. Left pelvic and hip postsurgi abigail changes. IMPRESSION: 1. 5.0 x 2.9 x 4.9 cm focal fluid collection, containing air overlying the region of the uterus, pos terior bladder. The patient has history of recent hysterectomy. Although this could represent a post operative seroma/hematoma and postsurgical changes, cannot exclude abscess. 2. Large left cystic adnexal mass measuring 5.0 x 5.9 cm, probably a large ovarian cyst. 3. Nonspecific free fluid within pelvis. 4. No evidence of bowel obstruction. RPTAT: AAPP Geo Meyers Physician Date Time Electronically viewed and signed by Geo Meyers Physician on 01/07/2017 10:22 JL/
[2017-01-07] MEDS ORDERED: ERTAPENEM SODIUM 1 GM in SOD CHLORIDE 0.9% 100 ML IVPB ONE (11:00)
[2017-01-07] MEDS ORDERED: HYDROmorphONE 1 MG/ML SYG IV STA (11:06)
--- NOTE | 2017-01-07 12:18 | ERD ---
ER Documentation Chief Complaint Chief Complaint pelvic pain , burning urination , vaginal discharge , hystrectomy x 3 weeks HPI This is a 41-year-old female who had a hysterectomy 3 weeks ago and is also having recurrent UTIs over the past 3 weeks. Patient states she is having some vaginal spotting is dark brown. She is also having some suprapubic pain when she urinates with urinary frequency. She is not having any fever or back pain hematuria. No nausea vomiting diarrhea. Pain is described as a constant suprapubic pain without radiation nothing makes it worse or better ROS All systems reviewed and are negative except as per history of present illness. Medications Home Meds Active Scripts Fluconazole* (Diflucan*) 150 Mg Tablet, 150 MG PO ONCE, #2 TAB Take 1 now and repeat in 1 week after antibiotics. Prov:PENNIE MONAHAN MD 01/01/17 Cephalexin* (Cephalexin*) 500 Mg Capsule, 500 MG PO Q6 for 5 Days, #20 CAP Prov:PENNIE MONAHAN MD 01/01/17 Allergies Allergies: Coded Allergies: No Known Allergy (Verified , 12/18/16) PMhx/Soc Medical and Surgical Hx: pt denies Medical Hx History of Surgery: Yes (C/ S X1, D AND C, LEEP, LEFT HIP SX,hysterectomy.) Anesthesia Reaction: No Hx Neurological Disorder: No Hx Respiratory Disorders: No Hx Cardiac Disorders: No Hx Psychiatric Problems: No Hx Miscellaneous Medical Probl: No Hx Alcohol Use: No Hx Substance Use: No Hx Tobacco Use: No Smoking Status: Never smoker FmHx Family History: No coronary disease Physical Exam Vitals Vital Signs Date Time Temp Pulse Resp B/P Pulse Ox O2 Delivery O2 Flow Rate FiO2 01/07/17 10:51 66 17 112/82 100 Room Air 01/07/17 08:16 98.9 100 18 133/83 100 Physical Exam Const: Well-developed, well-nourished Head: Atraumatic, normocephalic Eyes: Normal Conjunctiva, PERRLA, EOMI, normal sclera, no nystagmus ENT: Normal External Ears, Nose and Mouth, moist mucus membranes. Neck: Full range of motion. No meningismus, no lymphadenopathy. Resp: Clear to auscultation bilaterally, no wheezing, rhonchi, rales Cardio: Regular rate and rhythm, no murmurs, S1 S2 present Abd: Soft, diffuse lower pelvic tenderness, non distended. Normal bowel sounds, no guarding or rebound, no pulsitile abdominal masses or bruits Skin: No petechiae or rashes, no ecchymosis , no maculopapular rash Back: No midline or flank tenderness Ext: No cyanosis, or edema, FROM x 4, normal inspection, neurovascularly intact x 4 Neur: Awake and alert, STR 5/5 x 4, sensation intact x 4, no focal findings, cerebellum intact Psych: Normal Mood and Affect Result Diagram: 01/07/1790901/07/17909 Results 24 hrs Laboratory Tests Test 01/07/17 09:10 White Blood Count 9.810^3/ul Red Blood Count 3.2810^6/ul Hemoglobin 10.1g/dl Hematocrit 30.9% Mean Corpuscular Volume 94.2fl Mean Corpuscular Hemoglobin 30.8pg Mean Corpuscular Hemoglobin Concent 32.7g/dl Red Cell Distribution Width 12.7% Platelet Count 53104^3/UL Mean Platelet Volume 9.2fl Neutrophils % 68.4% Lymphocytes % 20.8% Monocytes % 9.4% Eosinophils % 0.8% Basophils % 0.3% Nucleated Red Blood Cells % 0.0/100WBC Neutrophils # 6.710^3/ul Lymphocytes # 2.010^3/ul Monocytes # 0.910^3/ul Eosinophils # 0.110^3/ul Basophils # 0.010^3/ul Nucleated Red Blood Cells # 0.010^3/ul Urine Color YELLOW Urine Clarity CLOUDY Urine pH 6.0 Urine Specific [place] 1.018 Urine Ketones NEGATIVEmg/dL Urine Nitrite NEGATIVEmg/dL Urine Bilirubin NEGATIVEmg/dL Urine Urobilinogen NEGATIVEmg/dL Urine Leukocyte Esterase 3+Stella/ul Urine Microscopic RBC 7/HPF Urine Microscopic WBC > 182/HPF Urine Squamous Epithelial Cells FEW/HPF Urine Amorphous Crystals FEW/HPF Urine Bacteria FEW/HPF Urine Mucus FEW/HPF Urine Hemoglobin 2+mg/dL Urine Glucose NEGATIVEmg/dL Urine Total Protein 1+mg/dl Sodium Level 145mmol/L Potassium Level 4.2mmol/L Chloride Level 104mmol/L Carbon Dioxide Level 29mmol/L Anion Gap 16 Blood Urea Nitrogen 11mg/dl Creatinine 0.56mg/dl Glucose Level 81mg/dl Calcium Level 9.1mg/dl Total Bilirubin 0.3mg/dl Direct Bilirubin 0.00mg/dl Indirect Bilirubin 0.3mg/dl Aspartate Amino Transf (AST/SGOT) 23IU/L Alanine Aminotransferase (ALT/SGPT) 50IU/L Alkaline Phosphatase 123IU/L Total Protein 8.2g/dl Albumin 4.4g/dl Globulin 3.80g/dl Albumin/Globulin Ratio 1.15 Lipase 63U/L Current Medications Medications (Trade) Dose Ordered Sig/Pearl Route PRN Reason Start Time Stop Time Status Last Admin Dose Admin Sodium Chloride (NS) 1,000 ml @ 1,000 mls/hr Q1H STAT IV 01/07/17 08:38 01/07/17 09:37 DC 01/07/17 09:23 Morphine Sulfate (morphine) 4 mg ONCE STAT IV 01/07/17 08:38 01/07/17 08:41 DC 01/07/17 09:23 Ondansetron HCl (Zofran Inj) 4 mg ONCE STAT IV 01/07/17 08:38 01/07/17 08:41 DC 01/07/17 09:23 IV Flush 10 ml 10 ml STK-MED ONCE .ROUTE 01/07/17 09:42 01/07/17 09:43 DC Sodium Chloride (NS) 100 ml @ ud STK-MED ONCE .ROUTE 01/07/17 09:42 01/07/17 09:43 DC Iohexol 150 ml 150 ml STK-MED ONCE .ROUTE 01/07/17 09:42 01/07/17 09:43 DC Ertapenem/Sodium Chloride (Invanz/NS) 100 ml @ 200 mls/hr ONCE ONCE IVPB 01/07/17 11:00 01/07/17 11:29 DC 01/07/17 11:09 Hydromorphone HCl (Dilaudid) 1 mg ONCE STAT IV 01/07/17 11:06 01/07/17 11:07 DC 01/07/17 11:13 Ondansetron HCl (Zofran Inj) 4 mg ONCE STAT IV 01/07/17 11:06 01/07/17 11:07 DC 01/07/17 11:12 Procedures/MDM PROCEDURE: CT ABDOMEN AND PELVIS WITH IV CONTRAST. CLINICAL INDICATION: Abdominal pain TECHNIQUE: CT scan of the abdomen and pelvis without contrast was performed on a multidetector high-resolution CT scanner following the use of IV contrast. 100 cc Omnipaque-300 was administered. Coronal and sagittal reformatted images were obtained from the axial source images. Images were reviewed on a high- resolution PACS workstation. The total exam CTDI equals 9 mGy and the total exam DLP equals 512.0 mGy-cm. One or more of the following dose reduction techniques were used: Automated exposure control. Adjustment of the mA and/or kV according to patient size. Use of iterative reconstruction technique. COMPARISON: Ultrasound dated January 07, 2017 FINDINGS: CT abdomen: The lung bases are clear. The heart size is within limits. There is no significant pericardial effusion. Hepatic morphology is within limits. No gross masses or lesions. Gallbladder is unremarkable. No evidence of intrahepatic or extrahepatic biliary dilatation. The spleen and pancreas are within normal limits. Both adrenal glands are within normal limits. Both kidneys are in normal anatomic position. No evidence of obstruction or hydronephrosis. No gross renal/ureteric calculi. The visualized GI tract demonstrate normal caliber loops of small and large bowel. No evidence of bowel obstruction. The appendix is within normal limits. The aorta is unremarkable. No significant retroperitoneal lymphadenopathy. CT pelvis: There is a 5.0 x 2.9 x 4.9 cm focal fluid collection with air in the region of the uterus. and There is a large left cystic adnexa, measuring 5.0 x 5.9 cm. Free fluid is noted within the pelvis. The rectosigmoid colon appears to be within normal limits. The visualized osseous structures, appears to be within normal limits. Left pelvic and hip postsurgical changes. IMPRESSION: 1. 5.0 x 2.9 x 4.9 cm focal fluid collection, containing air overlying the region of the uterus, posterior bladder. The patient has history of recent hysterectomy. Although this could represent a postoperative seroma/hematoma and postsurgical changes, cannot exclude abscess. 2. Large left cystic adnexal mass measuring 5.0 x 5.9 cm, probably a large ovarian cyst. 3. Nonspecific free fluid within pelvis. 4. No evidence of bowel obstruction. RPTAT: AAPP Jason Lue, Physician Date Time Electronically viewed and signed by Geo Meyers Physician on 01/07/2017 10:22 JL/ CC: JUAN JOSÉ AYALA PROCEDURE: US Pelvis CLINICAL INDICATION: pelvic pain with vaginal discharge, hysterectomy 3 weeks ago TECHNIQUE: Multiple sonographic images of the pelvis were obtained utilizing a transabdominal and endovaginal technique. The images were reviewed on a PACS workstation. COMPARISON: Pelvic ultrasound from 11/26/2016 FINDINGS: The uterus is absent. The right ovary measures 3.3 x 2.0 x 2.6 cm. The left ovary measures 7.5 x 5.4 x 6.5 cm. There is normal vascular flow in both ovaries. There is a persistent complex cystic lesion in the right adnexa measuring 4.6 x 2.5 cm which has heterogeneous internal echoes, posterior acoustic enhancement, and mild peripheral vascular flow. The prior ultrasound study from 11/26/2016 there was a similar complex cystic lesion in the right adnexa of the approximately same size. In the left adnexa, there is a new complex cystic lesion measuring 5.1 x 5.0 x 5.7 cm with lacy internal septations. It is not associated with significant internal or peripheral vascular flow. There is mild pelvic free fluid. IMPRESSION: Since the prior ultrasound study from 11/26/2016, there has been interval hysterectomy. New complex cystic lesion in the left adnexa measuring up to 5.7 cm may be a hemorrhagic/corpus luteal cyst. There is also a 4.6 cm complex cystic lesion in the right adnexa which is essentially unchanged compared to the prior ultrasound study from 11/26/2016. There is also mild pelvic free fluid which may be postsurgical from hysterectomy or possibly due to rupture of a hemorrhagic/corpus luteal cyst. Given the stability of the right adnexal lesion and a new prominent left adnexal lesion, an MRI of the pelvis without and with intravenous contrast is recommended for further evaluation. RPTAT: EE Ryan Nugent Physician Date Time Electronically viewed and signed by Ryan Nugent, Physician on 01/07/2017 09:52 RA/ CC: JUAN JOSÉ AYALA Spoke with Dr. Robles. He performed the surgery. She said that this pelvic fluid collection is actually medication they put down there on purpose to stop oozing from the vagina. Patient has no elevated white blood count or fever. She does have a urinary tract infection and I will send off a blood culture and start her on Macrobid. The doctor said she will see the patient on Saturday and follow up with the urine cultures Departure Diagnosis: Primary Impression: UTI (urinary tract infection) Urinary tract infection type: acute cystitis Hematuria presence: without hematuria Qualified Code: N30.00 - Acute cystitis without hematuria Additional Impression: Pelvic pain Condition: Stable HERMAN MALLOY DO Jan 07, 2017 12:18
[2017-01-07] MEDS ORDERED: HYDR-902 PO (12:21)
[2017-01-07] MEDS ORDERED: NITR-58 PO (12:21)
[2017-01-07] MEDS ORDERED: FLUC150T17 PO (12:31)
[2017-01-07 12:44] VITALS: BP 115/77; PULSE 78; RESP 17
== END 2017-01-07 13:13 | disposition home or self-care (01) ==
LOC: FTE 08:14
DX: N30.00 Acute cystitis without hematuria (principal)
CPT/HCPCS: 36415; 74177; 76830; 76856; 80053; 81001; 83690; 85025; 87086; 96374; 96375; 96376; J1170; J1335; J2270; J2405; J7030; Q9967; Z7502; Z7610

== ENCOUNTER 2017-01-13 08:50 | Emergency (ER) | payer OTHER ==
[~2017-01-13] VITALS: Ht 165.1 cm; Wt 69.4 kg
[~2017-01-13 08:50] MED LIST changes: +HYDR-902 PO; +NITR-58 PO
[2017-01-13 08:54] VITALS: Ht 165.1 cm; Wt 69.4 kg
[2017-01-13] MEDS ORDERED: PIPER-TAZO 3.375 GM IV (PMX) 50 ML IV STA (09:28)
[2017-01-13] MEDS ORDERED: ONDANSETRON 4 MG INJ IV STA (10:09)
[2017-01-13] MEDS ORDERED: morphine 10 MG INJ IV ONE (10:30)
[2017-01-13 11:15] LABS: BASOPHILS % 0.5 % (0.0-2.0); EOSINOPHILS # 0.4 10^3/ul (0.0-0.5); EOSINOPHILS % 6.1 % (0.0-7.0); HEMATOCRIT 30.4 % (37.0-47.0); LYMPHOCYTES # 2.3 10^3/ul (0.8-2.9); LYMPHOCYTES % 38.7 % (15.0-51.0); MEAN CORPUSCULAR HEMOGLOBIN 30.7 pg (29.0-33.0); MEAN CORPUSCULAR HGB CONC 32.9 g/dl (32.0-37.0); MEAN CORPUSCULAR VOLUME 93.3 fl (82.0-101.0); MEAN PLATELET VOLUME 9.4 fl (7.4-10.4); MONOCYTE # 0.5 10^3/ul (0.3-0.9); MONOCYTES % 7.9 % (0.0-11.0); NEUTROPHIL # 2.8 10^3/ul (1.6-7.5); NEUTROPHILS % 46.5 % (39.0-77.0); PLATELET COUNT 438 10^3/UL (140-415); RED BLOOD COUNT 3.26 10^6/ul (4.20-5.40); RED CELL DISTRIBUTION WIDTH 12.3 % (11.5-14.5); WHITE BLOOD COUNT 5.9 10^3/ul (4.8-10.8)
--- NOTE | 2017-01-13 11:23 | RADRPT ---
PROCEDURE: CT Abdomen and Pelvis without contrast. CLINICAL INDICATION: Abdominal pain. TECHNIQUE: Routine abdominopelvic CT was performed without intravenous contrast and reformatted in the axial, coronal, sagittal planes. DICOM images are available. Radiation dose: CTDIvol (mGy) = 9.2; total DLP(mGy-cm) = 480 One or more of the following radiation dose techniques were used: -Automated exposure control. -Adjust of the mA and/or kV according to patient size. -Use of iterative reconstruction technique. COMPARISON: 01/07/2017. FINDINGS: Interval resolution of the previously identified focal fluid collection previously seen in the pelvi s. Large cystic structure in the left adnexa measuring up to 6.4 cm is grossly unchanged. Layering sludge in the gallbladder. Biliary system is nondilated. Kidneys demonstrate symmetric attenuation without hydronephrosis or urolithiasis. There is a punctat e focus of gas within the urinary bladder. Unenhanced liver, pancreas, adrenal glands, and spleen demonstrate no gross abnormality. Moderate to large amount of stool is noted within the colon. Stable postop appearance of the left hip. Lung bases are clear. IMPRESSION: Examination is limited by the absence of intravenous contrast, which may limit diagnostic sensitivit y. Interval resolution of the previously identified focal fluid collection previously seen in the pelvi s. Large cystic structure in the left adnexa measuring up to 6.4 cm is grossly unchanged. Punctate focus of gas within the urinary bladder, which may reflect sequelae of recent catheterizati on. Moderate to large amount of stool in the colon. RPTAT: EE .Fly Mcgowan MD, MD Date Time Electronically viewed and signed by .Fly Mcgowan MD, MD on 01/13/2017 11:29 .C/
[2017-01-13 11:35] LABS: ALBUMIN/GLOBULIN RATIO 0.95; CALCIUM 9.1 mg/dl (8.4-10.2); CREATININE 0.56 mg/dl (0.44-1.00); POTASSIUM 4.4 mmol/L (3.5-5.1); TOTAL PROTEIN 8.2 g/dl (6.1-8.1)
[2017-01-13 11:44] LABS: UR BACTERIA FEW /HPF (NONE SEEN); UR BUDDING YEAST MODERATE /HPF (NONE SEEN); UR RBC 3 /HPF (0-5); UR SQUAMOUS EPITHELIAL CELL FEW /HPF (FEW)
[2017-01-13] MEDS ORDERED: FLUC150T17 PO (11:53)
[2017-01-13] MEDS ORDERED: DOCU-144 PO (11:53)
[2017-01-13] MEDS ORDERED: PHEN-538 PO (11:53)
[2017-01-13] MEDS ORDERED: POLY17PO6 PO (11:53)
--- NOTE | 2017-01-13 12:08 | ERD ---
ER Documentation Chief Complaint Chief Complaint Pt with painful urinations since 01/06, was here on 01/07 put on ABX. HPI This is a 41-year-old female SP hysterectomy presenting to the emergency department complaining of painful urination and worsening pelvic pain. Patient was evaluated at this facility on Jan 07, patient was placed on Macrobid she is on day 6. Patient denies fevers, flank pain, nausea,vomiting, and diarrhea ROS All systems reviewed and are negative except as per history of present illness. Medications Home Meds Active Scripts Docusate Sodium* (Colace*) 100 Mg Capsule, 100 MG PO BID for 5 Days, #30 CAP Prov:GUSTAVO ABREU PA-C 01/13/17 Polyethylene Glycol* (Miralax*) 17 Gm Powd.pack, 17 GM PO DAILY, #7 Prov:GUSTAVO ABREU PA-C 01/13/17 Fluconazole* (Diflucan*) 150 Mg Tablet, 150 MG PO ONCE, #1 TAB Prov:GUSTAVO ABREU PA-C 01/13/17 Phenazopyridine Hcl* (Pyridium*) 200 Mg Tab, 200 MG PO TID Y for URINARY PAIN, # 6 TAB Prov:GUSTAVO ABREU PA-C 01/13/17 Fluconazole* (Diflucan*) 150 Mg Tablet, 150 MG PO ONCE, #2 TAB I PO NOW AND 1 PO IN 7 DAYS Prov:HERMAN MALLOY DO 01/07/17 Hydrocodone/Acetaminophen ([place] 10-325 Tablet) 1 Each Tablet, 1 TAB PO Q6H Y for PAIN, #20 TAB Prov:YARIEL MALLOYSTJESSICA Farr DO 01/07/17 Nitrofurantoin Monohyd Macrocr* (Macrobid*) 100 Mg Capsr, 100 MG PO BID for 14 Days, CAP Prov:HERMAN MALLOY DO 01/07/17 Fluconazole* (Diflucan*) 150 Mg Tablet, 150 MG PO ONCE, #2 TAB Take 1 now and repeat in 1 week after antibiotics. Prov:PENNIE MONAHAN MD 01/01/17 Cephalexin* (Cephalexin*) 500 Mg Capsule, 500 MG PO Q6 for 5 Days, #20 CAP Prov:PENNIE MONAHAN MD 01/01/17 Allergies Allergies: Coded Allergies: No Known Allergy (Verified , 12/18/16) PMhx/Soc History of Surgery: Yes (C/ S X1, D AND C, LEEP, LEFT HIP SX,hysterectomy.) Anesthesia Reaction: No Hx Neurological Disorder: No Hx Respiratory Disorders: No Hx Cardiac Disorders: No Hx Psychiatric Problems: No Hx Miscellaneous Medical Probl: No Hx Alcohol Use: No Hx Substance Use: No Hx Tobacco Use: No Physical Exam Vitals Vital Signs Date Time Temp Pulse Resp B/P Pulse Ox O2 Delivery O2 Flow Rate FiO2 01/13/17 08:54 98.8 75 20 114/75 100 Physical Exam Const: WDWN no acute distress Head: Atraumatic Eyes: Normal Conjunctiva ENT: Normal External Ears, Nose and Mouth. Neck: Full range of motion..~ No meningismus. Resp: Clear to auscultation bilaterally Cardio: Regular rate and rhythm, no murmurs Abd: Soft, mild tender to palpation in pelvic region non distended. Normal bowel sounds Skin: No petechiae or rashes Back: No midline or flank tenderness Ext: No cyanosis, or edema Neur: Awake and alert Psych: Normal Mood and Affect Result Diagram: 01/13/17 1100 01/13/17 1100 Results 24 hrs Laboratory Tests Test 01/13/17 11:00 White Blood Count 5.910^3/ul Red Blood Count 3.2610^6/ul Hemoglobin 10.0g/dl Hematocrit 30.4% Mean Corpuscular Volume 93.3fl Mean Corpuscular Hemoglobin 30.7pg Mean Corpuscular Hemoglobin Concent 32.9g/dl Red Cell Distribution Width 12.3% Platelet Count 62882^3/UL Mean Platelet Volume 9.4fl Neutrophils % 46.5% Lymphocytes % 38.7% Monocytes % 7.9% Eosinophils % 6.1% Basophils % 0.5% Nucleated Red Blood Cells % 0.0/100WBC Neutrophils # 2.810^3/ul Lymphocytes # 2.310^3/ul Monocytes # 0.510^3/ul Eosinophils # 0.410^3/ul Basophils # 0.010^3/ul Nucleated Red Blood Cells # 0.010^3/ul Urine Color Pending Urine Clarity Pending Urine Ketones Pending Urine Nitrite Pending Urine Bilirubin Pending Urine Urobilinogen Pending Urine Leukocyte Esterase Pending Urine Microscopic RBC 3/HPF Urine Microscopic WBC 47/HPF Urine Squamous Epithelial Cells FEW/HPF Urine Bacteria FEW/HPF Urine Yeast (Budding) MODERATE/HPF Urine Hemoglobin Pending Urine Glucose Pending Urine Total Protein Pending Sodium Level 144mmol/L Potassium Level 4.4mmol/L Chloride Level 107mmol/L Carbon Dioxide Level 26mmol/L Anion Gap 15 Blood Urea Nitrogen 10mg/dl Creatinine 0.56mg/dl Glucose Level 96mg/dl Calcium Level 9.1mg/dl Total Bilirubin 0.0mg/dl Direct Bilirubin 0.00mg/dl Indirect Bilirubin 0.0mg/dl Aspartate Amino Transf (AST/SGOT) 20IU/L Alanine Aminotransferase (ALT/SGPT) 32IU/L Alkaline Phosphatase 86IU/L Total Protein 8.2g/dl Albumin 4.0g/dl Globulin 4.20g/dl Albumin/Globulin Ratio 0.95 Lipase 58U/L Current Medications Medications (Trade) Dose Ordered Sig/Pearl Route PRN Reason Start Time Stop Time Status Last Admin Dose Admin Piperacillin Sod/ Tazobactam Sod (Zosyn 3.375gm/ 50 ml (Pmx)) 50 ml @ 100 mls/hr ONCE STAT IV 01/13/17 09:28 01/13/17 09:57 DC 01/13/17 10:28 Morphine Sulfate (morphine) 6 mg ONCE ONCE IV 01/13/17 10:30 01/13/17 10:31 DC 01/13/17 10:28 Ondansetron HCl (Zofran Inj) 4 mg ONCE STAT IV 01/13/17 10:09 01/13/17 10:10 DC 01/13/17 10:28 Procedures/MDM This is a 41-year-old female SP hysterectomy presenting to the emergency department complaining of painful urination and worsening pelvic pain. She appears well, nontoxic and stable to be discharged home. Discussed to follow up with PCP I have reviewed patient's past chart. C&S of urine culture came back sensitive to macrobid in which patient is still on and not finished the antibiotic course. In the ED, patient was given zosyn and morphine for pain. Repeat lab work was done, did not have any evidence of leukocytosis.CT abd and pelvis showed Moderate to large amount of stool in the colon. Patient will be given miralax and colace as an outpatient I have consulted my supervising physician in which he has suggested for patient to continue macrobid as an outpatient and to follow up with primary care and urology. Spoke with Dr. Robles. He performed the surgery. She said that this pelvic fluid collection is actually medication they put down there on purpose to stop oozing from the vagina. Departure Diagnosis: Primary Impression: Dysuria Additional Impression: Constipation Condition: Stable Patient Instructions: Dysuria, Treating Constipation, Constipation (Adult) Additional Instructions: FOLLOW UP WITH YOUR PRIMARY CARE PHYSICIAN TOMORROW.Return to this facility if you are not improving as expected. Take all medicines as directed. Return to this facility if you are not improving as expected. GUSTAVO ABREU PA-C Jan 13, 2017 12:08
[2017-01-13 12:49] LABS: ADD UMIC YES; UR ASCORBIC ACID NEGATIVE (NEGATIVE); UR BILIRUBIN (Dip) NEGATIVE (NEGATIVE); UR BLOOD (Dip) 1+ mg/dL (NEGATIVE); UR CLARITY CLEAR (CLEAR); UR COLOR YELLOW (YELLOW); UR GLUCOSE (Dip) NEGATIVE (NEGATIVE); UR KETONES (Dip) NEGATIVE (NEGATIVE); UR LEUKOCYTE ESTERASE (Dip) 3+ Leu/ul (NEGATIVE); UR NITRITE (Dip) NEGATIVE (NEGATIVE); UR SPECIFIC GRAVITY (Dip) 1.008 (1.003-1.030); UR TOTAL PROTEIN (Dip) NEGATIVE (NEGATIVE); UR UROBILINOGEN (Dip) NEGATIVE (NEGATIVE)
[2017-01-13 12:58] VITALS: BP 99/62; PULSE 60; RESP 12; TEMP 98.5
== END 2017-01-13 13:12 | disposition home or self-care (01) ==
LOC: FTE 08:50
DX: K59.00 Constipation, unspecified (principal)
CPT/HCPCS: 74176; 80053; 81001; 83690; 85025; 87086; 96374; 96375; J2270; J2405; J2543; Z7502